=== PATIENT | female | born 1995 | race African-American/Black ===

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

== ENCOUNTER 2018-03-25 10:47 | Emergency (ER) | payer MEDICARE, OTHER ==
[~2018-03-25] VITALS: Ht 167.6 cm; Wt 91.0 kg
[2018-03-25] MEDS ORDERED: DIAZEPAM 2 MG TABLET PO ONE (12:15)
[2018-03-25 13:07] VITALS: BP 132/69
== END 2018-03-25 13:08 | disposition home or self-care (01) ==
LOC: ER 12:04
DX: M62.830 Muscle spasm of back (principal); F12.10 Cannabis abuse, uncomplicated
CPT/HCPCS: 99283

== ENCOUNTER 2018-05-09 12:30 | Emergency (ER) | payer MEDICARE, OTHER ==
[~2018-05-09] VITALS: Ht 170.2 cm; Wt 91.0 kg
[2018-05-09] MEDS ORDERED: IBUPROFEN 600MG TABLET PO ONE (14:30)
[2018-05-09 16:45] VITALS: BP 136/83
== END 2018-05-09 16:47 | disposition home or self-care (01) ==
LOC: ER 12:30
DX: L03.115 Cellulitis of right lower limb (principal); L02.415 Cutaneous abscess of right lower limb; F12.90 Cannabis use, unspecified, uncomplicated
CPT/HCPCS: 76881; 81025; 99284

== ENCOUNTER 2018-05-11 10:49 | Emergency (ER) | payer MEDICARE, OTHER ==
[~2018-05-11] VITALS: Ht 170.2 cm; Wt 91.0 kg
[2018-05-11] MEDS ORDERED: LIDOCAINE HCL 1% 20ML VIAL (Pyxis) INJ INFIL ONE (14:30)
[2018-05-11 16:10] VITALS: BP 112/82
== END 2018-05-11 16:14 | disposition home or self-care (01) ==
LOC: ER 10:49
DX: L03.115 Cellulitis of right lower limb (principal)
CPT/HCPCS: 10060; 99283; J3490

== ENCOUNTER 2018-05-13 12:44 | Emergency (ER) | payer MEDICARE, OTHER ==
[~2018-05-13] VITALS: Ht 170.2 cm; Wt 91.0 kg
[2018-05-13] MEDS ORDERED: BACITRACIN ZINC OINT UDPKT TOP ONE (13:15)
[2018-05-13 14:28] VITALS: BP 119/67
== END 2018-05-13 14:28 | disposition home or self-care (01) ==
LOC: ER 12:44
DX: L03.115 Cellulitis of right lower limb (principal); L02.415 Cutaneous abscess of right lower limb
CPT/HCPCS: 99282

== ENCOUNTER 2018-07-25 18:09 | Emergency (ER) | payer MEDICARE, OTHER ==
[~2018-07-25] VITALS: Ht 167.6 cm; Wt 90.0 kg
[2018-07-26] MEDS ORDERED: IBUPROFEN 800MG TABLET PO ONE (00:30)
[2018-07-26 02:59] VITALS: BP 124/68
== END 2018-07-26 03:00 | disposition home or self-care (01) ==
LOC: ER 18:09
DX: S92.351A Displaced fracture of fifth metatarsal bone, right foot, initial encounter for closed fracture (principal); W22.8XXA Striking against or struck by other objects, initial encounter; Y93.89 Activity, other specified; Y92.89 Other specified places as the place of occurrence of the external cause; Y99.8 Other external cause status
CPT/HCPCS: 29515; 73610; 73630; 99283

== ENCOUNTER 2018-09-18 21:48 | Emergency (ER) | payer MEDICARE, OTHER ==
[~2018-09-18] VITALS: Ht 165.1 cm; Wt 93.0 kg
[2018-09-18] MEDS ORDERED: SODIUM CHLORIDE 0.9% 1000ML BAG (SEPSIS BOLUS) IV ONE (23:15)
[2018-09-18] MEDS ORDERED: PIPERACILLIN/TAZ 3.375G PREMIX 50 ML IV ONE (23:15)
[2018-09-18] MEDS ORDERED: ACETAMINOPHEN 500MG TABLET PO ONE (23:15)
[2018-09-18 23:35] LABS: BASOPHILS % 0.5 % (0.0-2.0); EOSINOPHILS % 4.3 % (0.0-5.0); HEMATOCRIT. 39.2 % (36.0-48.0); HEMOGLOBIN. 13.2 g/dL (12.0-16.0); LYMPHOCYTES % 14.5 % (20.0-50.0); MEAN CORPUSCULAR VOLUME 83.3 fL (81.0-99.0); NEUTROPHILS % 73.7 % (40.0-76.0); PLATELET 369 x1000/uL (130-400); RED BLOOD CELL COUNT 4.71 mill/uL (4.2-5.4); RED CELL DISTRIBUTION WIDTH 15.2 % (11.6-14.6)
[2018-09-18 23:37] LABS: CLARITY URINE CLEAR (CLEAR); COLOR URINE YELLOW (YELLOW); KETONES URINE NEGATIVE (NEGATIVE); LEUKOCYTE ESTERASE URINE NEGATIVE (NEGATIVE); NITRITE URINE NEGATIVE (NEGATIVE); OCCULT BLOOD URINE NEGATIVE (NEGATIVE); PROTEIN URINE NEGATIVE (NEGATIVE); SPECIFIC GRAVITY URINE 1.007 (1.005-1.030); UROBILINOGEN URINE 0.2 E.U./dL (0.2-1.0)
[2018-09-18 23:40] LABS: CHLORIDE 105 mEq/L (98-107)
[2018-09-19 00:12] LABS: HCG SCREEN INDETERMINATE
[2018-09-19] MEDS ORDERED: ALBUTEROL (0.083%) 2.5MG/3ML NEB HHN STA (01:37)
[2018-09-19 02:15] VITALS: BP 113/59
== END 2018-09-19 03:22 | disposition home or self-care (01) ==
LOC: ER 23:35 → CANBEDREQ 09-19 08:09
DX: R50.9 Fever, unspecified (principal); I10 Essential (primary) hypertension; F17.210 Nicotine dependence, cigarettes, uncomplicated; Z85.9 Personal history of malignant neoplasm, unspecified; Z86.73 Personal history of transient ischemic attack (TIA), and cerebral infarction without residual deficits
CPT/HCPCS: 36415; 71045; 80053; 81003; 81025; 83605; 83690; 83880; 84145; 84484; 84702; 84703; 85025; 87040; 87086; 87804; 93005; 94640; 96361; 96365; 99284; J2543; J7030; J7611

== ENCOUNTER 2018-12-26 12:40 | Emergency (ER) | payer MEDICARE, OTHER ==
[~2018-12-26] VITALS: Ht 167.6 cm; Wt 100.0 kg
[2018-12-26] MEDS ORDERED: MORPHINE SULFATE 4 MG/ML CPJ (NOT FOR IM USE) IV STA (16:03)
[2018-12-26] MEDS ORDERED: SODIUM CHLORIDE 0.9% 1,000 ML IV ONE (16:03)
[2018-12-26] MEDS ORDERED: ONDANSETRON HCL 4MG/2ML INJ IV STA (16:03)
[2018-12-26] MEDS ORDERED: FAMOTIDINE 20MG/2ML VIAL IV STA (16:03)
[2018-12-26 16:32] LABS: EOSINOPHILS % 11.4 % (0.0-5.0); HEMATOCRIT. 38.3 % (36.0-48.0); HEMOGLOBIN. 12.8 g/dL (12.0-16.0); LYMPHOCYTES % 26.1 % (20.0-50.0); MEAN PLATELET VOLUME 7.7 fl (7.4-10.4); MONOCYTES % 12.2 % (2.0-8.0); NEUTROPHILS % 49.3 % (40.0-76.0); PLATELET 351 x1000/uL (130-400); RED BLOOD CELL COUNT 4.73 mill/uL (4.2-5.4); RED CELL DISTRIBUTION WIDTH 14.1 % (11.6-14.6)
[2018-12-26 16:36] LABS: CLARITY URINE CLOUDY (CLEAR); COLOR URINE DARK YELLOW (YELLOW); KETONES URINE TRACE (NEGATIVE); LEUKOCYTE ESTERASE URINE 3+ (NEGATIVE); NITRITE URINE NEGATIVE (NEGATIVE); OCCULT BLOOD URINE NEGATIVE (NEGATIVE); PH URINE 5.5 (4.5-8.0); PROTEIN URINE NEGATIVE (NEGATIVE); SPECIFIC GRAVITY URINE 1.025 (1.005-1.030)
[2018-12-26 16:38] LABS: CHLORIDE 106 mEq/L (98-107)
[2018-12-26 16:39] LABS: PROTHROMBIN TIME 10.7 sec (9.6-11.0)
[2018-12-26 16:53] LABS: HCG SCREEN INDETERMINATE
[2018-12-26 21:41] VITALS: BP 123/80
== END 2018-12-26 21:42 | disposition home or self-care (01) ==
LOC: ER 12:40
DX: R10.13 Epigastric pain (principal); R19.7 Diarrhea, unspecified; R59.0 Localized enlarged lymph nodes
CPT/HCPCS: 36415; 74176; 76705; 80053; 81003; 81025; 83690; 84703; 85025; 85610; 96374; 96375; 99284; J2270; J2405; J3490; J7030